=== PATIENT | male | born 1985 | race Caucasian/White ===

== ENCOUNTER 2017-09-22 21:50 | Emergency (ER) | payer SELFPAY, OTHER ==
[2017-09-23] MEDS: KETOROLAC 30 MG INJ IV (01:51)
[2017-09-23] MEDS: SOD CHLORIDE 0.9% 1,000 ML IV (01:52)
[2017-09-23 01:57] LABS: ADD MAN DIFF? NO
[2017-09-23 02:01] LABS: ABNORMAL IP MESSAGE 1; BASOPHIL # 0.1 10^3/ul (0.0-0.1); BASOPHILS % 0.4 % (0.0-2.0); EOSINOPHILS # 0.1 10^3/ul (0.0-0.5); EOSINOPHILS % 0.4 % (0.0-7.0); HEMATOCRIT 44.2 % (42.0-52.0); HEMOGLOBIN 14.5 g/dl (14.0-18.0); LYMPHOCYTES # 2.3 10^3/ul (0.8-2.9); LYMPHOCYTES % 13.1 % (15.0-51.0); MEAN CORPUSCULAR HEMOGLOBIN 27.5 pg (29.0-33.0); MEAN CORPUSCULAR HGB CONC 32.8 g/dl (32.0-37.0); MEAN CORPUSCULAR VOLUME 83.9 fl (82.0-101.0); MEAN PLATELET VOLUME 9.8 fl (7.4-10.4); MONOCYTE # 1.7 10^3/ul (0.3-0.9); MONOCYTES % 9.5 % (0.0-11.0); NEUTROPHIL # 13.4 10^3/ul (1.6-7.5); NEUTROPHILS % 76.1 % (39.0-77.0); PLATELET COUNT 310 10^3/UL (140-415); POSITIVE DIFF @See below; RED BLOOD COUNT 5.27 10^6/ul (4.70-6.10); RED CELL DISTRIBUTION WIDTH 13.2 % (11.5-14.5)
[2017-09-23 02:01] LABS: WHITE BLOOD COUNT 17.5 10^3/ul (4.8-10.8)
[2017-09-23 02:26] LABS: ALANINE AMINOTRANSFERASE 37 IU/L (13-69); ALBUMIN 4.8 g/dl (3.3-4.9); ALBUMIN/GLOBULIN RATIO 1.33; ALKALINE PHOSPHATASE 114 IU/L (42-121); ANION GAP 18 (8-16); ASPARTATE AMINO TRANSFERASE 19 IU/L (15-46); BILIRUBIN,INDIRECT 0.4 mg/dl (0-1.1); BILIRUBIN,TOTAL 0.4 mg/dl (0.2-1.3); BLOOD UREA NITROGEN 10 mg/dl (7-20); CALCIUM 9.3 mg/dl (8.4-10.2); CARBON DIOXIDE 29 mmol/L (21-31); CHLORIDE 100 mmol/L (97-110); CREATININE 0.84 mg/dl (0.61-1.24); GLUCOSE 111 mg/dl (70-220); SODIUM 143 mmol/L (135-144); TOTAL PROTEIN 8.4 g/dl (6.1-8.1); URIC ACID 5.6 mg/dl (3.1-7.9)
[2017-09-23 03:13] LABS: ERYTHROCYTE SEDIMENTATION RATE 32 mm/Hr (0-15)
[2017-09-23 04:14] LABS: C-REACTIVE PROTEIN 15.4 mg/dl (0.0-0.9)
[2017-09-23] MEDS: CLINDAMYCIN 600 MG/D5W (PMX) 50 ML IVPB (04:21)
[2017-09-23] MEDS: METHYLPREDNISOLONE 125 MG INJ IV (05:13)
== END 2017-09-23 05:39 | disposition home or self-care (01) ==
LOC: FTE 09-23 05:39
DX: L03.115 Cellulitis of right lower limb (principal); F17.210 Nicotine dependence, cigarettes, uncomplicated
CPT/HCPCS: 36415; 73600-50; 80053; 84560; 85025; 85651; 86140; 96374; 96375; 99284-25